=== PATIENT | female | born 1985 | race Caucasian/White ===

== ENCOUNTER → 2021-01-27 | Outpatient (CLI) | payer OTHER | LOC: MRI 15:00 → US 16:00 | DX: E04.9 Nontoxic goiter, unspecified (principal); G93.2 Benign intracranial hypertension | CPT/HCPCS: 70553; 76536; A9577 ==

== ENCOUNTER → 2021-05-01 | Outpatient (CLI) | payer OTHER ==
[2021-05-01 11:25] LABS: GLUCOSE,CSF 66 mg/dL (50-80); TOTAL PROTEIN,CSF 47 mg/dL (20-45)
[2021-05-01 11:29] LABS: RBC (AUTOMATED) 100 10^6 (0); WBC (AUTOMATED 3 10^3 (0-5)
== END ==
LOC: RAD 07:24
PROVIDERS: Psychiatry & Neurology Neurology
PROC: 009U3ZX Drainage of Spinal Canal, Percutaneous Approach, Diagnostic (ICD-10-PCS; principal; 2021-05-01)
DX: G93.2 Benign intracranial hypertension (principal); Z86.69 Personal history of other diseases of the nervous system and sense organs
CPT/HCPCS: 36415; 82945; 84157; 87070; 87205; 89051; G0463

== ENCOUNTER 2021-05-02 11:21 | Emergency (ER) | payer OTHER ==
[2021-05-02 14:05] LABS: HEMOGLOBIN 13.7 gm/dl (12.3-15.3); RED BLOOD COUNT 4.72 M/UL (4.00-5.10); WHITE BLOOD COUNT 9.6 K/UL (4.5-11.0)
[2021-05-02 14:25] LABS: BUN/CREATININE RATIO 19 (0-10)
== END 2021-05-02 17:28 | disposition home or self-care (01) ==
LOC: ER1 11:21
PROVIDERS: Emergency Medicine
DX: R51.9 Headache, unspecified (principal); F17.200 Nicotine dependence, unspecified, uncomplicated
CPT/HCPCS: 80053; 85025; 85610; 85730; 96372; 96374; 96375; 99284; J2270; J2405; J7030

== ENCOUNTER 2021-05-05 11:47 | Emergency (ER) | payer OTHER | END 2021-05-05 16:55 | disposition home or self-care (01) | LOC: ER1 11:47 | DX: R51.9 Headache, unspecified (principal); F17.290 Nicotine dependence, other tobacco product, uncomplicated; Z88.0 Allergy status to penicillin; Z88.5 Allergy status to narcotic agent; Z91.040 Latex allergy status; Z88.8 Allergy status to other drugs, medicaments and biological substances | CPT/HCPCS: 62270; 99283 ==